=== PATIENT | female | born 1975 | race Caucasian/White ===

== ENCOUNTER 2019-05-25 12:44 | Emergency (ER) | payer SELFPAY ==
[~2019-05-25] VITALS: Ht 170.2 cm; Wt 77.3 kg
[2019-05-25] MEDS ORDERED: LIDOCAINE 2% 5 ML JELLY TP ONE (13:45)
[2019-05-25] MEDS ORDERED: IBUPROFEN 800 MG TABLET PO ONE (15:00)
[2019-05-25 15:21] VITALS: BP 153/70
== END 2019-05-25 15:22 | disposition home or self-care (01) ==
LOC: EMS 12:46
DX: S00.411A Abrasion of right ear, initial encounter (principal); M95.11 Cauliflower ear, right ear; Y08.89XA Assault by other specified means, initial encounter; Y93.89 Activity, other specified; Y92.89 Other specified places as the place of occurrence of the external cause; Y99.8 Other external cause status